=== PATIENT | female | born 1965 | race Hispanic/Latino ===

== ENCOUNTER → 2017-08-04 | Outpatient (CLI) | payer OTHER ==
--- NOTE | 2017-08-15 09:55 | Diagnostic Imaging Report ---
#[id number] - [id number] #BILATERAL FIRST EVER DIGITAL SCREENING MAMMOGRAM WITH CAD: 08/04/2017 CLINICAL: Routine screening. Baseline exam. No prior exams were available for comparison. Current study contains 4 films. The tissue of both breasts is heterogeneously dense. This may lower the sensitivity of mammography. Current study was also evaluated with a Computer Aided Detection (CAD) system. There is a lobulated mass vs two adjacent masses in the left breast at 10 o'clock middle depth. These likely are cysts. No old films to compare with as this is her baseline study. No other significant masses, calcifications, or other findings are seen in either breast. IMPRESSION: INCOMPLETE: NEEDS ADDITIONAL IMAGING EVALUATION The lobulated mass in the left breast is indeterminate. Additional views with possible ultrasound are recommended. The patient will be contacted by the Mammography Department to schedule this appointment. Dao Rich Jr., D.O. cw/:08/12/2017 08:48:14 [employer]eter[employer] Table Assembler: Scarlett CASTILLO)(M), [facility] letter sent: Additional Imaging Needed Mammogram BI-RADS: 0 Indeterminate
== END ==
LOC: MAMMO 12:19
PROVIDERS: ATTEND Family Medicine
DX: Z12.31 Encounter for screening mammogram for malignant neoplasm of breast (principal)
CPT/HCPCS: 77067

== ENCOUNTER → 2017-08-31 | Outpatient (CLI) | payer OTHER ==
--- NOTE | 2017-08-31 16:07 | Diagnostic Imaging Report ---
EXAM: Renal Ultrasound INDICATION: MICROSCOPIC HEMATURIA COMPARISON: None TECHNIQUE: Transverse and longitudinal images of the kidneys and bladder were obtained. FINDINGS: Right Kidney: Length: 10.0 cm Appearance: Normal echogenicity. Collecting system: No hydronephrosis Stones: None Cyst/Mass: None Left Kidney: Length: 10.0 cm Appearance: Normal echogenicity. Collecting system: No hydronephrosis Stones: None Cyst/Mass: None Bladder: Suboptimally distended, however, grossly unremarkable. If clinical concern remains, consider further evaluation with CT abdomen and pelvis without and with contrast hematuria protocol. IMPRESSION: Unremarkable renal ultrasound exam. If clinical concern remains, consider further evaluation with CT abdomen and pelvis without and with contrast hematuria protocol. Signed by: Dr. Ruy Nick M.D. on 08/31/2017 4:04 PM
--- NOTE | 2017-08-31 18:07 | Diagnostic Imaging Report ---
#[id number] - USBRELIMLT ULTRASOUND OF THE LEFT BREAST : 08/31/2017 Comparison is made to exams dated: 08/31/2017 mammogram and 08/04/2017 mammogram - [facility]. Color flow and real-time ultrasound were performed on the left breast with scanning from 6 o'clock to 12 o'clock. At the 9-10 o'clock position 5 cm from the nipple there is a hypechoic nodule with composite measurements of 1.0 x 0.4 x 1.0 cm. This appears bilobate and could represent 2 lesions adjacent to each other. This has internal echoes and/or septation. IMPRESSION: PROBABLY BENIGN - FOLLOW-UP RECOMMENDED Hypoechoic nodule in the left breast could represent complex cyst or a solid nodule such as a fibroadenoma. A follow-up mammogram and an ultrasound in 6 months is recommended to demonstrate stability. The patient was informed of these findings and the need for followup. Dao Rich Jr., D.O. cw/:08/31/2017 15:28:56 Design Engineering Manager: GENNY NGUYEN, [facility] letter sent: Followup Recommended Ultrasound BI-RADS: 3 Probably benign
--- NOTE | 2017-08-31 18:07 | Diagnostic Imaging Report ---
#[id number] - MGDXLT #UNILATERAL LEFT DIGITAL DIAGNOSTIC MAMMOGRAM WITH SPOT COMPRESSION: 08/31/2017 Comparison is made to exam dated: 08/04/2017 mammogram - [facility]. Current study contains 3 films. The tissue of the left breast is heterogeneously dense. This may lower the sensitivity of mammography. Focal spot compression confirms an oblong rounded density at the 9 o'clock position. Ultrasound is recommended and will be performed today. No significant masses, calcifications, or other findings are seen in the breast. IMPRESSION: INCOMPLETE: NEEDS ADDITIONAL IMAGING EVALUATION Indeterminate density in the right breast may represent a cyst or conglomerate of cysts. Ultrasound is recommended and will be performed today. Dao Rich Jr., D.O. cw/:08/31/2017 14:18:30 Coin Wrapping Machine Operator: Scarlett NGUYEN(Albert)(Sharad), [facility] letter sent: Additional Imaging Needed Mammogram BI-RADS: 0 Indeterminate
== END ==
LOC: MAMMO 11:54
PROVIDERS: ATTEND Family Medicine
DX: N63.20 Unspecified lump in the left breast, unspecified quadrant (principal); R92.8 Other abnormal and inconclusive findings on diagnostic imaging of breast
CPT/HCPCS: 76770

== ENCOUNTER → 2020-04-04 | Outpatient (CLI) | payer OTHER | LOC: MAMMO 12:18 | PROVIDERS: ATTEND Family Medicine | DX: Z12.31 Encounter for screening mammogram for malignant neoplasm of breast (principal) | CPT/HCPCS: 77067 ==

== ENCOUNTER → 2021-03-27 | Outpatient (CLI) | payer BC | LOC: MAMMO 13:30 | PROVIDERS: ATTEND Family Medicine | DX: Z12.31 Encounter for screening mammogram for malignant neoplasm of breast (principal) | CPT/HCPCS: 77067 ==

== ENCOUNTER → 2022-06-25 | Outpatient (CLI) | payer BC | LOC: MAMMO 08:13 | PROVIDERS: ATTEND Family Medicine | DX: Z12.31 Encounter for screening mammogram for malignant neoplasm of breast (principal) | CPT/HCPCS: 77067 ==

== ENCOUNTER → 2022-07-15 | Outpatient (CLI) | payer BC | LOC: MAMMO 14:01 | PROVIDERS: ATTEND Family Medicine | DX: N63.20 Unspecified lump in the left breast, unspecified quadrant (principal) ==

== ENCOUNTER → 2024-08-31 | Outpatient (REF) | payer BC | LOC: MAMMO 07:52 | PROVIDERS: ATTEND Family Medicine | DX: Z12.31 Encounter for screening mammogram for malignant neoplasm of breast (principal) | CPT/HCPCS: 77067 ==